=== PATIENT | male | born 1955 | race Caucasian/White ===

== ENCOUNTER → 2016-07-24 | Outpatient (CLI) | payer BC ==
[~2016-07-24] MED LIST: CPR500 PO; MAGNEVIST IV PRN; METR-163 PO; OXYC-57 PO
--- NOTE | 2016-07-24 08:00 | DIAGNOSTIC IMAGING REPORT ---
MR ANGIOGRAM OF THE NECK COMBO CLINICAL HISTORY: Slurred speech. Dizziness. COMPARISON STUDY: No priors. TECHNIQUE: Axial 3-D [id number] MR angiography of the neck is performed. Subsequently, following the IV administration of 20 cc of Magnevist coronal MR angiogram of the neck was performed to corroborate the findings. 3-D reformats are created and assessed. All measurements were calculated based on NASCET criteria. Subtraction imaging was utilized. FINDINGS: Visualized portions of the thoracic aorta are normal in caliber. The aortic arch demonstrates standard 3-vessel anatomy. The subclavian arteries are widely patent bilaterally. The right common carotid artery is widely patent, as are the right internal and external carotid arteries. The left common carotid artery is widely patent, as are the left internal and external carotid arteries. There is mild tortuosity of both internal carotid arteries. The vertebral arteries are widely patent and codominant. The partially visualized intracranial vessels at the skull base are clear. The internal jugular veins are patent. IMPRESSION: Unremarkable MR angiogram of the neck. Electronically signed by: Giorgio Trinidad M.D. 07/24/2016 7:59 AM Dictated Date/Time: 07/24/2016 7:56 AM
--- NOTE | 2016-07-24 08:23 | DIAGNOSTIC IMAGING REPORT ---
Brain MRI WITH AND WITHOUT CONTRAST HISTORY: Dizziness. TECHNIQUE: Multiplanar multisequence MRI of the brain was performed both before and after the intravenous administration of contrast. COMPARISON STUDY: Outside hospital sinus CT 04/01/2013. FINDINGS: The paranasal sinuses and mastoid air cells are clear. The major vascular flow voids at the skull base are well-maintained. There is no old right posterior inferior cerebellar artery infarct. The ventricles and sulci demonstrate mild age-related involutional changes. The major vascular flow voids at the skull base are well-maintained. There is no mass, hematoma, midline shift, or acute infarct. No abnormal enhancement. 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 This remains unchanged. IMPRESSION: 1. No acute intracranial abnormality. 2. Old right cerebellar infarct. Electronically signed by: Laz Marie M.D. 07/24/2016 8:22 AM Dictated Date/Time: 07/24/2016 8:16 AM
== END | disposition home or self-care (01) ==
LOC: C.MRI 06:20
PROVIDERS: ATTEND Psychiatry & Neurology Neurology
DX: R42 Dizziness and giddiness (principal); I77.9 Disorder of arteries and arterioles, unspecified; R47.81 Slurred speech; Z86.73 Personal history of transient ischemic attack (TIA), and cerebral infarction without residual deficits